=== PATIENT | male | born 2005 | race Caucasian/White ===

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

== ENCOUNTER 2024-01-11 19:46 | Emergency (ER) | payer OTHER, SELFPAY ==
--- NOTE | ~2024-01-11 | XR_ITS ---
XR chest 2V Ordering provider: Jovany Real MD History: 18 years Male with . chest pain . Comparison: None. FINDINGS: MEDIASTINUM: The cardiac silhouette is not enlarged. LUNGS: No infiltrates, effusions or pneumothorax. OTHER: No free air under the diaphragm. IMPRESSION: No acute cardiopulmonary pathology. Reviewed, dictated and finalized at location A.
--- NOTE | 2024-01-11 19:46 | ECG_ITS ---
Test Date: 2024-01-11 19:52:11 Measurements Intervals [place] Rate: 104 P: 78 IA: 150 QRS: 72 QRSD: 94 T: 55 QT: 312 QTc: 412 Interpretive Statements SINUS TACHYCARDIA NONSPECIFIC ST-T WAVE ABNORMALITY- INFERIOR LEADS BASELINE ARTIFACT- I, II, III, AVR, AVL, AVF, V1-V6 BORDERLINE ECG No previous ECG available for comparison Electronically Signed On 01-11-2024 20:03:44 CDT by Tashi Solano D.O.
[2024-01-11 19:47] VITALS: BP 140/84; PULSE 103; RESP 22; TEMP 36.7; O2SAT 100
[2024-01-11 20:06] LABS: Basophils Absolute Auto 0.1 K/mm3 (0.0-0.1); Basophils Percent Auto 0.4 % (0.2-1.2); Eosinophils Percent Auto 0.2 % (0-4.4); Hemoglobin 16.1 g/dL (14.0-18.0); Immature Granulocyte Absolute 0.15 K/mm3 (0.00-0.031); Immature Granulocyte Percent A 1.2 % (0-0.5); Lymphocytes Absolute Auto 2.13 K/mm3 (0.9-3.2); Lymphocytes Percent Auto 17.2 % (18.3-44.2); Mean Corpuscular Hemoglobin 29.8 pg (26-34); Mean Corpuscular Volume 85.2 fl (80-100); Mean Platelet Volume 9.9 fl (7.4-10.4); Monocytes Absolute Auto 0.5 K/mm3 (0.1-0.6); Monocytes Percent Auto 4.2 % (2.6-8.5); Neutrophils Absolute Auto 9.5 K/mm3 (1.3-6.7); Neutrophils Percent Auto 76.8 % (45.5-73.1); Platelet Count Result 232 k/mm3 (150-375); Red Cell Distribution Width 12.2 % (11.5-14.5); White Blood Count 12.4 K/mm3 (4.5-10.0)
[2024-01-11 20:18] LABS: Alanine Aminotransferase 31 U/L (6-50); Albumin Level 5.1 g/dL (3.5-5.1); Alkaline Phosphatase 115 U/L (38-126); Anion Gap 12 mmol/L (4-12); Aspartate Amino Transferase 30 U/L (17-59); Bilirubin,Total 0.6 mg/dL (0.2-1.3); Blood Urea Nitrogen 7 mg/dL (9-20); Carbon Dioxide 26 mmol/L (22-30); Chloride 103 mmol/L (98-107); Estimated CRCL calculation 145 ml/min; Estimated Glomerular Filt Rate > 60; Glucose 135 mg/dL (65-110); Lipase 45 U/L (23-300); Potassium 3.4 mmol/L (3.4-5.0); Sodium 141 mmol/L (137-145)
[2024-01-11 20:20] LABS: INR 0.9; Prothrombin Time 12.7 Seconds (11.1-14.7)
[2024-01-11 20:21] LABS: Partial Thromboplastin Time 26.7 Seconds (22.3-36.8)
[2024-01-11 20:29] LABS: Troponin I < 0.012 ng/mL (0.000-0.034)
[2024-01-11 20:35] VITALS: O2SAT 100
[2024-01-11 20:38] VITALS: BP 130/66; PULSE 99; RESP 13; O2SAT 100
[2024-01-11 20:56] LABS: Magnesium 1.9 mg/dL (1.6-2.3)
--- NOTE | 2024-01-11 21:04 | ED.CHESTPAIN ---
HPI - Chest Pain General Chief Complaint: Chest Pain Stated Complaint: chest pain, numbness in hands Time Seen by Provider: 01/11/24 21:00 History of Present Illness HPI narrative: Patient is a 18-year-old male who this evening complaining of chest pain and numbness to his bilateral which started approximately 1 hour prior to arrival. Patient denies any similar symptoms in the past. Admits that the pain has improved since he has been in the emergency department. Denies any cardiac history and denies any similar symptoms in the. Currently denying any sharp stabbing chest pain. No additional symptoms or concerns at this time. Related Data Allergies Allergy/AdvReac Type Severity Reaction Status Date / Time No Known Allergies Allergy Verified 01/08/21 20:18 Review of Systems Review of Systems: All systems are reviewed and are negative unless stated otherwise in the HPI. [facility] Past Medical History Medical History No active medical problems Social History Social History Smoking status: Never smoker Gender identity (if verbalized by the patient): Male Exam Narrative: General: Alert, awake, afebrile, in no acute distress. HEENT: PERRL, no rhinorrhea, no post nasal drip, oropharynx clear.. Cardiovascular: Regular rate and rhythm, no murmurs, rubs or gallops, no peripheral edema. Respiratory: Clear to auscultation bilaterally, no tachypnea, no wheezing, no rhonchi, no rubs, no respiratory distress. Abdomen: Soft, nontender, nondistended, no rebound, no guarding, no peritoneal signs. Musculoskeletal: No joint swelling or deformity, normal muscle tone. Skin: No rashes or petechia, no signs of infection. Neurological: Alert and oriented to person, place, and time. Follows all commands. No focal deficits, speech is clear and fluent. Course Vital Signs Vital signs: Vital Signs Temperature 98.1 F 01/11/24 19:47 Pulse Rate 103 H 01/11/24 19:47 Respiratory Rate 22 H 01/11/24 19:47 Blood Pressure 140/84 01/11/24 19:47 Pulse Oximetry 100 01/11/24 19:47 Oxygen Delivery Room Air 01/11/24 19:47 Temperature 98.1 F 01/11/24 19:47 Pulse Rate 99 01/11/24 20:38 Respiratory Rate 13 01/11/24 20:38 Blood Pressure 130/66 01/11/24 20:38 Pulse Oximetry 100 01/11/24 20:38 Oxygen Delivery Room Air 01/11/24 20:35 MDM - Chest Pain MDM Narrative Medical decision making narrative: The patient was evaluated by myself in the emergency department. History is obtained from patient who is an independent historian and physical exam was performed. External medical records were reviewed at this time. IV was established and pertinent tests were ordered. EKG was obtained which revealed sinus tachycardia at a rate of 104. No ST changes, T wave inversions or evidence of acute ischemia. EKG was independently interpreted by me and is currently pending official cardiology read. Laboratory results obtained revealing no acute process. Imaging studies obtained included CXR which was independently interpreted by me revealing no acute process, which is pending final radiology interpretation. Differential diagnosis considerations include acute anxiety, acute stress reaction, dehydration and acute viral syndrome. Comorbidities impacting this visit include none. I have evaluated and discussed social determinants of health with the patient that could potentially impact subsequent diagnosis and treatment plans. On repeat assessment of the patient, reevaluation revealed that the patient is doing well and is in no acute distress. Patient symptoms have improved since he arrived to our emergency department. Repeat vital signs were all reviewed and noted to be stable. Differential diagnosis and treatment plan were discussed with the patient at bedside. Patient agrees with discussion and after rose
[2024-01-11 21:45] VITALS: BP 120/77; PULSE 74; RESP 20; O2SAT 99
== END 2024-01-11 21:53 | disposition home or self-care (01) ==
LOC: ANHED 21:48
PROVIDERS: Emergency Provider Emergency Medicine
DX: R07.9 Chest pain, unspecified (principal)
CPT/HCPCS: 36415; 71046; 80053; 83690; 83735; 84484; 85025; 85610; 85730; 93005; 99284

== ENCOUNTER 2024-05-06 01:15 | Emergency (ER) | payer OTHER, SELFPAY ==
--- NOTE | ~2024-05-06 | XR_ITS ---
EXAMINATION: XR chest 1V portable DATE: 05/06/2024 01:58 INDICATION: Vomiting. TECHNIQUE: A single frontal view of the chest was obtained. COMPARISON: Chest 2 views 01/11/2024 FINDINGS: There is no pneumonia, pleural effusion, or pneumothorax. The heart size is normal. IMPRESSION: 1. No acute cardiopulmonary disease. Reviewed, dictated and finalized at location A.
[2024-05-06 01:22] VITALS: BP 119/81; PULSE 79; RESP 15; TEMP 36.4; O2SAT 98
--- NOTE | 2024-05-06 01:37 | PC.NURSE ---
Patient politely refused a straight catheter for his urine specimen.
[2024-05-06 01:43] LABS: Basophils Absolute Auto 0.1 K/mm3 (0.0-0.1); Basophils Percent Auto 0.5 % (0.2-1.2); Eosinophils Absolute Auto 0.1 K/mm3 (0-0.3); Eosinophils Percent Auto 0.5 % (0-4.4); Hematocrit 43.9 % (42.0-52.0); Immature Granulocyte Absolute 0.16 K/mm3 (0.00-0.031); Immature Granulocyte Percent A 1.5 % (0-0.5); Lymphocytes Absolute Auto 2.91 K/mm3 (0.9-3.2); Lymphocytes Percent Auto 26.8 % (18.3-44.2); Mean Corpuscular HGB Conc 36.4 g/dl (32-36); Mean Corpuscular Hemoglobin 30.9 pg (26-34); Mean Corpuscular Volume 84.9 fl (80-100); Monocytes Absolute Auto 0.7 K/mm3 (0.1-0.6); Monocytes Percent Auto 6.1 % (2.6-8.5); Neutrophils Percent Auto 64.6 % (45.5-73.1); Platelet Count Result 221 k/mm3 (150-375); Red Blood Count 5.17 M/mm3 (4.6-6.20); Red Cell Distribution Width 12.3 % (11.5-14.5); White Blood Count 10.9 K/mm3 (4.5-10.0)
[2024-05-06 01:56] LABS: Alanine Aminotransferase 40 U/L (6-50); Albumin Level 5.2 g/dL (3.5-5.1); Alkaline Phosphatase 110 U/L (38-126); Anion Gap 15 mmol/L (4-12); Aspartate Amino Transferase 35 U/L (17-59); Bilirubin,Total 0.7 mg/dL (0.2-1.3); Blood Urea Nitrogen 11 mg/dL (9-20); Calcium 9.3 mg/dL (8.4-10.2); Carbon Dioxide 22 mmol/L (22-30); Chloride 105 mmol/L (98-107); Estimated CRCL calculation 131 ml/min; Estimated Glomerular Filt Rate > 60; Ethanol 111 mg/dL (<10); Glucose 133 mg/dL (65-110); Lipase 49 U/L (23-300); Potassium 3.2 mmol/L (3.4-5.0); Sodium 142 mmol/L (137-145)
[2024-05-06] MEDS: FAMOTIDINE 20 MG/2 ML VIAL IV PUSH (01:58)
[2024-05-06] MEDS: METOCLOPRAMIDE HCL INJ 10 MG/2 ML VIAL IV PUSH (01:58)
[2024-05-06] MEDS: MAG HYDROX/AL HYDROX/SIMETH 30 ML UDC PO (01:58)
[2024-05-06] MEDS: LACTATED RINGERS 1,000 ML 999 ML IV CONT (01:58)
--- NOTE | 2024-05-06 02:15 | ED_ITS ---
HPI - Nausea/Vomiting/Diarrhea General Chief complaint: Nausea/Vomiting/Diarrhea Stated complaint: vomitting blood after drinking etoh Time Seen by Provider: 05/06/24 01:44 History of Present Illness HPI Narrative: 19-year-old otherwise healthy male presenting to the emergency depart with nausea vomiting after ABX safe mL alcohol throughout the day. His fiancee is present at bedside. Patient is awake alert oriented and appears clinically sober enough to talk to me. He states that he was vomiting several times prior to arrival and had some red flecks in his vomit that made him concerned he was vomiting blood. He admitting drinking significant amounts of fireball over last 3 hours. He is awake and denies any active chest pain, nausea presently, abdominal pain or back pain. His fiancee is present at bedside for additional collateral formation. He was previously in his normal state of health. No history of esophageal problems, previous surgeries or endoscopies. No sign ificant alcohol use. Related Data Allergies Allergy/AdvReac Type Severity Reaction Status Date / Time No Known Allergies Allergy Verified 05/06/24 01:15 Review of Systems Review of Systems: As reviewed above in HPI [facility] Past Medical History Medical History No active medical problems Social History Social History Smoking status: Never smoker Gender identity (if verbalized by the patient): Male Exam Narrative: GENERAL: [Well-appearing, well-nourished, and in no acute distress.] HEAD: [Normocephalic, atraumatic.] EYES: [PERRLA and EOMI.] ENT: Nares clear, no rhinorrhea or epistaxis. Mucous membranes moist. NECK: Supple. CHEST: [Clear to auscultation. No respiratory distress.] HEART: [Regular rate and rhythm]. No murmur heard. [Normal peripheral pulses.] ABDOMEN: [Soft, nondistended], [nontender], [No rigidity or guarding] EXTREMITIES: Normal range of motion. [No edema.] SKIN: Warm, dry, no rash. NEURO: [No focal deficits]. Alert and oriented [x3.] PSYCH: [Normal mood and affect.] Course Vital Signs Vital signs: Vital Signs Temperature 36.4 C L 05/06/24 01:22 Pulse Rate 79 05/06/24 01:22 Respiratory Rate 15 05/06/24 01:22 Blood Pressure 119/81 05/06/24 01:22 Pulse Oximetry 98 05/06/24 01:22 Oxygen Delivery Room Air 05/06/24 01:22 Temperature 36.4 C L 05/06/24 01:22 Pulse Rate 79 05/06/24 01:22 Respiratory Rate 15 05/06/24 01:22 Blood Pressure 119/81 05/06/24 01:22 Pulse Oximetry 98 05/06/24 01:22 Oxygen Delivery Room Air 05/06/24 01:22 MDM - Nausea/Vomiting/Diarrhea MDM Narrative Medical decision making narrative: 19-year-old male who had significant amounts of alcohol throughout the day today and had 3 rounds of vomiting with 1 episode of blood flecks with his vomit. He was hemodynamically stable, not in acute distress, awake alert oriented. No crepitus with palpation of the chest or back. No present nausea or vomiting. Hemodynamically stable. Blood work was obtained including alcohol level and bili laboratory studies with a CBC, CMP, lipase. He was given a dose of Pepcid, Maalox, Reglan and a fluid bolus. Workup revealed a white count of 10.9 likely reactive to the vomiting. Hemoglobin of 16.0 and stable. Normal platelets. Electrolytes are largely within normal limits with a minor hypokalemia 3.2 but not significantly lower than previous. No acidosis. Normal renal function panel. Normal hepatic function panel. Negative lipase. Alcohol level mildly elevated 111. Chest x- ray reviewed and interpreted by myself shows no pneumonia, consolidation or aspiration. Patient was re-evaluated and stable for discharge home at this time with family members that will be driving him home. He was given regular primary care provider follow-up in a prescription for Zofran. Medical Records Attestation: I reviewed the patient's medical records. Lab Data Attestation: I reviewed the patient's lab results. 05/06/24 01:31 05/06/24 01:31 Labs: Lab Results 05/06/24 Range/Units 01:31 WBC 10.9 H (4.5-10.0) K/mm3 RBC 5.17 (4.6-6.20) M/mm3 Hgb 16.0 (14.0-18.0) g/dL Hct 43.9 (42.0-52.0) % MCV 84.9 (80-100) fl MCH 30.9 (26-34) pg MCHC 36.4 H (32-36) g/dl RDW 12.3 (11.5-14.5) % Plt Count 221 (150-375) k/mm3 MPV 10.0 (7.4-10.4) fl Immature Gran % (Auto) 1.5 H (0-0.5) % Neut % (Auto) 64.6 (45.5-73.1) % Lymph % (Auto) 26.8 (18.3-44.2) % [place] % (Auto) 6.1 (2.6-8.5) % Eos % (Auto) 0.5 (0-4.4) % Baso % (Auto) 0.5 (0.2-1.2) % Lymph # (Auto) 2.91 (0.9-3.2) K/mm3 [place] # (Auto) 0.7 H (0.1-0.6) K/mm3 Eos # (Auto) 0.1 (0-0.3) K/mm3 Baso # (Auto) 0.1 (0.0-0.1) K/mm3 Abs Immat Gran (auto) 0.16 H (0.00-0.031) K/mm3 Absolute Neuts (auto) 7.0 H (1.3-6.7) K/mm3 Absolute Nucleated RBC 0.000 (0.0-0.012) K/mm3 Nucleated RBC % 0.0 (0.0-0.2) % Sodium 142 (137-145) mmol/L Potassium 3.2 L (3.4-5.0) mmol/L Chloride 105 (98-107) mmol/L Carbon Dioxide 22 (22-30) mmol/L Anion Gap 15 H (4-12) mmol/L BUN 11 (9-20) mg/dL Creatinine 0.80 (0.7-1.3) mg/dL Estim Creat Clear Calc 131 ml/min Estimated GFR > 60 (59 - ) Glucose 133 H (65-110) mg/dL Calcium 9.3 (8.4-10.2) mg/dL Total Bilirubin 0.7 (0.2-1.3) mg/dL AST 35 (17-59) U/L ALT 40 (6-50) U/L Alkaline Phosphatase 110 (38-126) U/L Total Protein 9.0 H (6.3-8.2) g/dL Albumin 5.2 H (3.5-5.1) g/dL Lipase 49 (23-300) U/L Ethyl Alcohol 111 (<10) mg/dL Imaging Data Attestation: I personally reviewed and interpreted this imaging study as follows: My impression: No aspiration, consolidations, pneumothorax or pneumonia Discharge Plan Discharge Clinical Impression: Nausea & vomiting, Janice-Triplett tear Patient Disposition: Home, Self-Care Condition: Stable Instructions: Antibiotic Form, Acute Nausea and Vomiting (ED), Janice-Triplett Syndrome (ED) Additional Instructions: Follow-up with your regular primary doctor outpatient. Your labs and imaging all are reassuring. We have sent home with medications for continued nausea control at home. Refrain from significant alcohol intake in the future. Prescriptions: New famotidine [Pepcid] 20 mg tablet 20 mg PO BID Qty: 20 0RF ondansetron 4 mg tablet,disintegrating 4 mg PO Q8H PRN (Reason: nausea and vomiting) Qty: 10 0RF No Action prednisone 10 mg tablets,dose pack See Rx Instructions .ROUTE .COMPLEX Qty: 48 0RF Rx Instructions: orally per package directions amoxicillin-pot clavulanate [Augmentin] 875-125 mg tablet 1 tablet PO Q12H Qty: 20 0RF methylprednisolone [Medrol (Giuliano)] 4 mg tablets,dose pack See Rx Instructions .ROUTE .COMPLEX Qty: 21 0RF Rx Instructions: orally per package directions Follow-up/Referrals: PHYSICIAN,CUT OFF SAW TENDER METAL [Primary Care Provider] - Time of Disposition: 02:34
== END 2024-05-06 03:04 | disposition home or self-care (01) ==
PROVIDERS: Emergency Provider Student in an Organized Health Care Education/Training Program
DX: R11.2 Nausea with vomiting, unspecified (principal); K22.6 Gastro-esophageal laceration-hemorrhage syndrome
CPT/HCPCS: 36415; 71045; 80053; 82077; 83690; 85025; 96361; 96374; 96375; 99284; A9270; J2765; J7120

== ENCOUNTER 2024-10-22 19:52 | Emergency (ER) | payer OTHER, SELFPAY ==
--- NOTE | ~2024-10-22 | XR_ITS ---
XR foot LT min 3V Ordering provider: Cha Ozuna MD History: . injury PAIN SWELLING . Comparison: None. FINDINGS: BONES: No acute fracture or dislocation. JOINT SPACES: Normal. No tarsal coalition. SOFT TISSUES: Normal. IMPRESSION: No acute osseous abnormality left foot. Reviewed, dictated and finalized at location A.
--- OUTSIDE RECORDS SUMMARY | 2024-10-22 19:54 | XMS_ITS | Clinical Summary ---
Author Organization [facility] Address [address] [place] [address] Care Team Providers Care Radio Electronics Technician Name Role Phone Unavailable Primary Care Provider Unavailabl e Source Comments [facility],non-owned Affiliates and Associated Physician Practices is amultiple site organization consisting of ambulatory clinics and hospital sitesin [place], [place], [place] and [place]. This disclosure is being madepursuant to the Care Everywhere program and may not contain all information available regarding this patient. Last updated 18.[facility] Allergies No known active allergies Medications * Be aware that medications may not be up to date on this document. Alwaysverify current medications with the patient. No known medications Active Problems Problem Noted Date Diagnosed Date BMI (body mass index), pediatric, 95-99% for age 0309/08/2020 Resolved Problems Problem Noted Date Diagnosed Date Resolved Date Current mild episode of ana paula r depressive disorder without prior episode 02/17/2018 Immunizations Immunization Administration Dates Next Due DTAP HIB IPV 07/29/2004, 4,2003,04/03 DTAP/IPV 11/06/2008 HEP A PEDS 2 DOSE 03/09/2007,03/16/2006 HEP B VACCINE, PED/ADOL 2003,2003, Human Papilloma Virus Nineva lent Vaccine 11/19/2016 Human Papilloma Virus Vaccine 04/25/2015 INFLUENZA VACCINE 04/25/2015,05/07/2014,04/20/20 11 INFLUENZA VACCINE, QUADR. (F LUZONE; FLULAVAL; FLUARIX; AFLURIA QUADRIVALENT; 6MO+), 0.5 ML (IIV4) 09/08/2020,07/24/2018,05/31/2017,04/25,05/07/2014 MENINGOCOCAL MENINGITIS 04/25/2015 MENINGOCOCCAL ACWY (MCV4P) VAC IM 03/15/2019 MMR 05/12/2007,04/28/2004 PNEUMOCOCCAL PCV7 CONJ, PEDS 04/28/2004, 2003,2003,04/03 TDAP (7yrs+) 04/25/2015 VARICELLA 05/12/2007,02/12/2004 Family History Medical History Relation Name Comments Depression Maternal Aunt 1 Depression Maternal Aunt 2 CAD (Coronary Artery Disease) Maternal Grandfather Depression Maternal Uncle Relation Name Status Comments Maternal Aunt 1 Maternal Aunt 2 Maternal Grandfather Maternal Uncle Social History Tobacco Use Types Packs/Day Years Used Date Smoking Tobacco: Never Assessed Sex and Gender Information Value Date Recorded Sex Assigned at Not on file Legal Sex Male 7:52 AM SOFTWARE DEVELOPER Gender Identity Not on file Sexual Orientation Not on file Last Filed Vital Signs Vital Sign Reading Time Taken Comments Blood Pressure 127/76 09/08/2020 2:48 PM SOFTWARE DEVELOPER Pulse 62 09/08/2020 2:48 PM SOFTWARE DEVELOPER Temperature 36.5 C (97.7 F) 09/08/2020 2:48 PM SOFTWARE DEVELOPER Respiratory Rate - - Oxygen Saturation - - Inhaled Oxygen Concentration - - Weight 90.4 kg (199 lb 6.4 oz) 09/08/2020 2:48 P M SOFTWARE DEVELOPER Height 174 cm (5' 8.5 ) 09/08/2020 2:48 PM SOFTWARE DEVELOPER Body Mass Index 29.88 09/08/2020 2:48 PM SOFTWARE DEVELOPER Plan of Treatment Health Maintenance Due Date Last Done Comments HIV SCREENING 2018 MENINGOCOCCAL (Group B) VACC INE SHARED DECISION-MAKING (1 of 2 - Standard) 2019 HEPATITIS C SCREENING 02/01/2021 COVID-19 VACCINE (2023-2 5 season) 2024 DEPRESSION SCREENING 07/11/2024 INFLUENZA VACCINE (Season Ended) 2025 09/08/2020, 07/24/2018, 05/31/2017, Additional history exists DTAP/TDAP/TD VACCINES (7 - T d or Tdap) 04/25/2025 04/25/2015, 11/06/2008, 07/29/2004, Additional history exists ZOSTER VACCINE (1 of 2) 2053 HEPATITIS B VACCINE Completed 2003, 2003, 2003 PNEUMOCOCCAL VACCINE Completed 04/28/2004, 2003, 2003, Additional history exists HIB VACCINE Completed 07/29/2004, 08/11, 2003, Additional history exists HPV VACCINE Completed 11/19/2016, 04/25/2015 MENINGOCOCCAL GROUPS A/C/Y/W VACCINE Completed 03/15/2019, 04/25/2015 Goals Goal Patient Goal Type Associated Problems Recent Progress Patient-Stated? Author Use safety retraint in car Lifestyle On track( 021 2:48 PM SOFTWARE DEVELOPER) No Iman Montanez RN Insurance [place] [address]
[2024-10-22 20:20] VITALS: BP 141/72; PULSE 95; RESP 14; TEMP 36.7; O2SAT 100
--- NOTE | 2024-10-22 22:08 | ED.LOWEXIN ---
HPI - Extremity Injury (Lower) General Chief Complaint: Extremity Injury, Lower Stated Complaint: L foot injury Time Seen by Provider: 10/22/24 22:06 Source: patient Mode of arrival: ambulatory Limitations: no limitations History of Present Illness HPI Narrative: This is a 19-year-old male who presents to the ED for chief complaint of left foot injury that occurred around 4:00 p.m. today while at work. Patient states that was moving moving shingles when he jumped off the truck bed. States that his left foot landed hole and twisted. He does feel like he heard a crack. States that weight-bearing is very difficult due to pain. Patient reports pain is primarily across the plantar surface of the midfoot. Denies ankle pain or further injury Related Data Allergies Allergy/AdvReac Type Severity Reaction Status Date / Time No Known Allergies Allergy Verified 10/22/24 19:53 Review of Systems Review of Systems: All systems as dictated in HPI [facility] Past Medical History Medical History No active medical problems Social History Social History Smoking status: Never smoker Gender identity (if verbalized by the patient): Male Exam Narrative: GENERAL: Well-appearing, well-nourished, and in no acute distress. MSK: LLE: Mild swelling throughout the left foot. Mild tenderness to the plantar surface of mid foot. No tenderness to the base of the 5th metatarsal. No ankle swelling or tenderness. RLE: Benign SKIN: Warm, dry, no rash. NEURO: Alert and oriented x4. No focal deficits. PSYCH: Normal mood and affect. Course Vital Signs Vital signs: Vital Signs Temperature 98.1 F 10/22/24 20:20 Pulse Rate 95 10/22/24 20:20 Respiratory Rate 14 10/22/24 20:20 Blood Pressure 141/72 H 10/22/24 20:20 Pulse Oximetry 100 10/22/24 20:20 Oxygen Delivery Room Air 10/22/24 20:20 Temperature 98.1 F 10/22/24 20:20 Pulse Rate 95 10/22/24 20:20 Respiratory Rate 14 10/22/24 20:20 Blood Pressure 141/72 H 10/22/24 20:20 Pulse Oximetry 100 10/22/24 20:20 Oxygen Delivery Room Air 10/22/24 20:20 MDM - Extremity Injury (Lower) MDM Narrative Medical decision making narrative: 19-year-old male presenting to the ED for chief complaint of left foot injury a work today. Vitals are normal. Exam remarkable for the above. X-rays are negative for acute osseous findings. Presentation consistent with likely left foot sprain. He was placed in short-leg posterior splint and given crutches for assistance with ambulation. Podiatry referral given. If you have any new or worsening symptoms please return to the ER for further evaluation. Discharge Plan Discharge Clinical Impression: Foot sprain Patient Disposition: Home Condition: Stable Instructions: Antibiotic Form, Foot Sprain (ED) Additional Instructions: Exam and imaging today showed no fracture or dislocation. Please follow-up with Podiatry for likely left foot sprain. Use splint until otherwise directed. Continue with Tylenol and ibuprofen every 6 hours as needed for pain control. Patient Language: French Prescriptions: No Action prednisone 10 mg tablets,dose pack See Rx Instructions .ROUTE .COMPLEX Qty: 48 0RF Rx Instructions: orally per package directions amoxicillin-pot clavulanate [Augmentin] 875-125 mg tablet 1 tablet PO Q12H Qty: 20 0RF methylprednisolone [Medrol (Giuliano)] 4 mg tablets,dose pack See Rx Instructions .ROUTE .COMPLEX Qty: 21 0RF Rx Instructions: orally per package directions famotidine [Pepcid] 20 mg tablet 20 mg PO BID Qty: 20 0RF ondansetron 4 mg tablet,disintegrating 4 mg PO Q8H PRN (Reason: nausea and vomiting) Qty: 10 0RF Follow-up/Referrals: Maria Alejandra Yepez DPM [Physician] - PHYSICIAN,SENIOR ECOLOGIST [Primary Care Provider] - Andrew Servin MD [Physician] - Stand Alone Forms: Work/School Release IP Time of Disposition: 22:15
--- OUTSIDE RECORDS SUMMARY | 2024-10-22 22:33 | XMS_ITS | Clinical Summary ---
Author Organization [facility] Address [address] [place] [address] Care Team Providers Care Maintenance Coordinator Name Role Phone Unavailable Primary Care Provider Unavailabl e Source Comments [facility],non-owned Affiliates and Associated Physician Practices is amultiple site organization consisting of ambulatory clinics and hospital sitesin [place], [place], [place] and [place]. This disclosure is being madepursuant to the Care Everywhere program and may not contain all information available regarding this patient. Last updated 18.[facility] Allergies No known active allergies Medications * [...] on file Legal Sex Male 7:52 AM HISTORIAN DRAMATIC ARTS Gender Identity Not on file Sexual Orientation Not on file Last Filed Vital Signs Vital Sign Reading Time Taken Comments Blood Pressure 127/76 09/08/2020 2:48 PM HISTORIAN DRAMATIC ARTS Pulse 62 09/08/2020 2:48 PM HISTORIAN DRAMATIC ARTS Temperature 36.5 C (97.7 F) 09/08/2020 2:48 PM HISTORIAN DRAMATIC ARTS Respiratory Rate - - Oxygen Saturation - - Inhaled Oxygen Concentration - - Weight 90.4 kg (199 lb 6.4 oz) 09/08/2020 2:48 P M HISTORIAN DRAMATIC ARTS Height 174 cm (5' 8.5 ) 09/08/2020 2:48 PM HISTORIAN DRAMATIC ARTS Body Mass Index 29.88 09/08/2020 2:48 PM HISTORIAN DRAMATIC ARTS Plan of Treatment Health Maintenance Due Date [...] car Lifestyle On track( 021 2:48 PM HISTORIAN DRAMATIC ARTS) No Iman Montanez RN [place] [address] [address] [place] [address]
[2024-10-22] MEDS: HYDROcodone/acetaminophen (*CRX) 5-325 MG TABLET 1 TAB PO (22:40)
== END 2024-10-22 23:12 | disposition home or self-care (01) ==
LOC: ANHED 22:31
PROVIDERS: Emergency Provider Physician Assistant
DX: S93.602A Unspecified sprain of left foot, initial encounter (principal); X50.9XXA Other and unspecified overexertion or strenuous movements or postures, initial encounter
CPT/HCPCS: 73630; 99283; A9270

== ENCOUNTER 2024-11-05 22:36 | Emergency (ER) | payer OTHER, SELFPAY ==
[2024-11-05 22:38] VITALS: BP 143/79; PULSE 107; RESP 18; TEMP 36.6; O2SAT 100
--- OUTSIDE RECORDS SUMMARY | 2024-11-05 22:38 | XMS_ITS | Clinical Summary ---
Author Organization [facility] Address [address] [place] [address] Care Team Providers Care Pier Hand Helper Name Role Phone Unavailable Primary Care Provider Unavailabl e Source Comments [facility],non-owned Affiliates and Associated Physician Practices is amultiple site organization consisting of ambulatory clinics and hospital sitesin [place], [place], [place] and [place]. This disclosure is being madepursuant to the Care Everywhere program and may not contain all information available regarding this patient. Last updated 18.[facility] Allergies No known active allergies Medications * [...] on file Legal Sex Male 7:52 AM FERRIS WHEEL OPERATOR Gender Identity Not on file Sexual Orientation Not on file Last Filed Vital Signs Vital Sign Reading Time Taken Comments Blood Pressure 127/76 09/08/2020 2:48 PM FERRIS WHEEL OPERATOR Pulse 62 09/08/2020 2:48 PM FERRIS WHEEL OPERATOR Temperature 36.5 C (97.7 F) 09/08/2020 2:48 PM FERRIS WHEEL OPERATOR Respiratory Rate - - Oxygen Saturation - - Inhaled Oxygen Concentration - - Weight 90.4 kg (199 lb 6.4 oz) 09/08/2020 2:48 P M FERRIS WHEEL OPERATOR Height 174 cm (5' 8.5 ) 09/08/2020 2:48 PM FERRIS WHEEL OPERATOR Body Mass Index 29.88 09/08/2020 2:48 PM FERRIS WHEEL OPERATOR Plan of Treatment Health Maintenance Due Date [...] car Lifestyle On track( 021 2:48 PM FERRIS WHEEL OPERATOR) No Iman Montanez [place] [address] [place] [address]
--- NOTE | 2024-11-06 00:20 | PC.NURSE ---
Mother to desk stating they are going to leave.
--- OUTSIDE RECORDS SUMMARY | 2024-11-06 01:57 | XMS_ITS | Clinical Summary ---
Author Organization [facility] Address [address] [place] [address] Care Team Providers Care Financial Analyst Name Role Phone Unavailable Primary Care Provider Unavailabl e Source Comments [facility],non-owned Affiliates and Associated Physician Practices is amultiple site organization consisting of ambulatory clinics and hospital sitesin [place], [place], [place] and [place]. This disclosure is being madepursuant to the Care Everywhere program and may not contain all information available regarding this patient. 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 Gender Identity Not on file Sexual Orientation Not on file Last Filed Vital Signs Vital Sign Reading Time Taken Comments Blood Pressure 127/76 09/08/2020 2:48 PM HOTEL ROOM ATTENDANT Pulse 62 09/08/2020 2:48 PM HOTEL ROOM ATTENDANT Temperature 36.5 C (97.7 F) 09/08/2020 2:48 PM HOTEL ROOM ATTENDANT Respiratory Rate - - Oxygen Saturation - - Inhaled Oxygen Concentration - - Weight 90.4 kg (199 lb 6.4 oz) 09/08/2020 2:48 P M HOTEL ROOM ATTENDANT Height 174 cm (5' 8.5 ) 09/08/2020 2:48 PM HOTEL ROOM ATTENDANT Body Mass Index 29.88 09/08/2020 2:48 PM HOTEL ROOM ATTENDANT Plan of Treatment Health Maintenance Due Date [...] car Lifestyle On track( 021 2:48 PM HOTEL ROOM ATTENDANT) No Iman Montanez RN [place] [place] [address]
--- OUTSIDE RECORDS SUMMARY | 2024-11-06 01:59 | XMS_ITS | Encounter Summary ---
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 11/06/2024 1:15 AM CDT [facility] ABS. IMMATURE GRANULOCYTES 0.11 0.00 - 0.49 x10'3/uL 11/06/2024 1:15 AM CDT [facility] 11/06/2024 12:3 7 AM CDT [facility] Final Result [facility] [address] [place] [address], documented in this encounter Visit Diagnoses Not on filedocumented in this encounter Administered Medications Active Administered Medications - up to 3 most recent administrations Medication Order MAR Action Action Date Dose Rate Site supsjwgc-kyeivuznsy-zspxcjuus (NEOSPORIN) ointment Topical, Once, 1 dose, On 11/06/24 at 0200 Inactive Administered Medications - up to 3 most recent administrations Medication Order MAR Action Action Date Dose Rate Site iopamidol (ISOVUE-370) 76 % injection 100 mL 100 mL, Intravenous, IMG once as needed, Contrast, 1 dose, Starting on 11/06/24 at 0148, Until 11/06/24 at 0148 Given 11/06/2024 1:48 AM CDT 100 mLs ketorolac (TORADOL) injection 15 mg 15 mg, Intravenous, Once, 1 dose, On 11/06/24 at 0045, For IV administration, give over 15 seconds. Given 11/06/2024 12:49 AM CDT 15 mg documented in this encounter Active and Recently Administered Medications Times are shown in CDT. Scheduled Medication Order 11/04/2024 11/05/2024 11/06/2024 ketorolac (TORADOL) injection 15 mg (COMPLETED) 15 mg, Intravenous, Once, 1 dose, On 11/06/24 at 0045, For IV administration, give over 15 seconds. 0049 (Given - Provid er: Tony Smith RN) znszhmew-tulenplrnf-hsitppjeg (NEOSPORIN) ointment Topical, Once, 1 dose, On e 11/06/24 at 0200 0200 (Due) PRN Medication Order 11/04/2024 11/05/2024 11/06/2024 iopamidol (ISOVUE-370) 76 % injection 100 mL (COMPLETED) 100 mL, Intravenous, IMG once as needed, Contrast, 1 dose, Starting on Tue11/06/24 at 0148, Until Tue11/06/24 at 0148 0148 (Given - Provid er: Edith Wetzel, RTR) documented in this encounter Care Teams Small Battery Plate Assembler Relationship Specialty Start Date End Date None, Provider, MD PCP - General UNKNOWN PHYSICIAN SPECIALTY 11/06/24 documented as of this encounter
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
--- OUTSIDE RECORDS SUMMARY | 2024-11-06 01:59 | XMS_ITS | Encounter Summary ---
Author Organization [facility] Address [address] [place] [address] Care Team Providers Care Oven Dumper Name Role Phone None, Provider Primary Care Provider Unavaila ble Encounter Details Date Type Department Care Team (Latest Contact Info) Description 11/06/2024 Travel Social History Tobacco Use Types Packs/Day Years Used Date Smoking Tobacco: Never Passive Smoke Exposure: Never Smokeless Tobacco: Never Alcohol Use Standard Drinks/Week Comments Not Currently 0 (1 standard drink = 0.6 oz pur e alcohol) sometimes Sex and Gender Information Value Date Recorded Sex Assigned at Male 11/06/2024 12:30 AM CDT Legal Sex Male 12:27 AM CDT Gender Identity Not on file Sexual Orientation Not on file documented as of this encounter Functional Status * Calculated C-SSRS Risk Score (Lifetime/Recent) Answer Date of Assessment Author Status No Risk Indicated 11/06/2024 12:37 AM CDT Brook Villa RN Active * [place] Suicide Severity Rating Scale (Screener/Recent Self-Report) Question Answer Date of Assessment Author Status 1. Wish to be (Past 1 Month) No 11/06/2024 12:37 AM CDT Lissy Villa RN Act denisse 2. Non-Specific Active Suicidal Thoughts (Past 1 Month) No 11/06/2024 12:37 AM ALIZAT Lissy Villa RN Act denisse 6. Suicidal Behavior (Lifetime) No 11/06/2024 12:37 AM ALIZAT Lissy Villa RN Act denisse documented as of this encounter Plan of Treatment Not on file documented as of this encounter Visit Diagnoses Not on filedocumented in this encounter Care Teams Oven Dumper Relationship Specialty Start Date End Date None, Provider, PCP - General UNKNOWN PHYSICIAN SPECIALTY 11/06/24 documented as of this encounter
== END 2024-11-06 00:20 | disposition left against medical advice (07) ==
DX: S71.001A Unspecified open wound, right hip, initial encounter (principal)
CPT/HCPCS: 99199

== ENCOUNTER 2025-05-21 14:08 | Emergency (ER) | payer SELFPAY ==
--- NOTE | ~2025-05-21 | CT_ITS ---
EXAM/PROCEDURE: CT abdomen pelvis w con HISTORY: Umbilical and right lower quadrant pain COMPARISON: None available. TECHNIQUE: IV contrast enhanced CT of the abdomen and pelvis FINDINGS: The appendix is inferior and medial to the cecum and appears normal. Several loops of fluid-filled small and large bowel are present. The bowel gas pattern is nonobstructive with no free air free fluid or pneumatosis seen. No hydroureteronephrosis or AAA. Gallbladder appears within normal limits. Adrenal glands spleen pancreas kidneys and stomach are unremarkable. Lung bases clear. Bones intact. No bulky lymphadenopathy or masses seen. Numerous shotty/borderline pathologic size mesenteric lymph nodes are noted. Urinary bladder is nondistended but appears grossly normal. Small area of infiltration in the lower pelvic (midline subcutaneous soft tissues image 155 series 3. No discrete lesion or drainable fluid collection. No abscess seen. Vascular structures appear patent. IMPRESSION: 1. Multiple fluid-filled loops of small and large bowel could be associated with infectious enterocolitis. Numerous mesenteric lymph nodes are noted which could also be associated with mesenteric adenitis. 2. Normal-appearing appendix. No acute surgical abnormality identified. Reviewed, dictated and finalized at location A. LOPMENT MANAGER IMPRESSION: 1. Multiple fluid-filled loops of small and large bowel could be associated wit h infectious enterocolitis. Numerous mesenteric lymph nodes are noted which cou ld also be associated with mesenteric adenitis. 2. Normal-appearing appendix. No acute surgical abnormality identified.
[2025-05-21 14:10] VITALS: BP 144/69; PULSE 73; RESP 20; TEMP 36.2; O2SAT 99
--- OUTSIDE RECORDS SUMMARY | 2025-05-21 14:14 | XMS_ITS | Clinical Summary ---
Author Organization [facility] Address [address] [place] [address] Care Team Providers Care Oceanographic Meteorologist Name Role Phone None, Provider MD Primary Care Provider Unavaila ble Allergies No known active allergies Social History Tobacco Use Types Packs/Day Years [...] Sign Reading Time Taken Comments Blood Pressure 109/55 11/06/2024 2:00 AM CDT Pulse 92 11/06/2024 12:31 AM CDT Temperature 36.3 C (97.3 F) 11/06/2024 12:31 AM CDT Respiratory Rate 18 11/06/2024 12:31 AM CDT Oxygen Saturation 99% 11/06/2024 2:30 AM CDT Inhaled Oxygen Concentration - - Weight 86.9 kg (191 lb 9.3 oz) 11/06/2024 12:31 AM CDT Height 175.3 cm (5' 9) 11/06/2024 12:31 AM CDT Body Mass Index 28.29 11/06/2024 12:31 AM CDT Plan of Treatment Health Maintenance Due Date Last Done Comments Annual Physical 2006 Meningococcal B Vaccine (1 of 2 - Standard) 2019 Hepatitis C 2021 COVID-19 Vaccine ( season) 2025 Influenza Adult (#1) 2025 09/08/2020, 07/24/2018, 05/31/2017, Additional history exists DTaP, Tdap and Td Vaccines (7 - [...] 11/19/2016, 04/25/2015 Meningococcal Vaccine Completed 03/15/2019, 015 Hepatitis A Vaccines Aged Out No long er eligible based on patient's age to complete this topic RSV Immunizations Under 20 Months Aged Out No longer eligible based on patient's age to complete this topic Insurance [employer] Care Teams Oceanographic Meteorologist Relationship Specialty Start Date End Date None, Provider, MD PCP - General UNKNOWN PHYSICIAN SPECIALTY 11/06/24
--- NOTE | 2025-05-21 15:02 | ED_ITS ---
HPI - General Adult General Chief complaint: Abdominal Pain Stated complaint: abd pain Time Seen by Provider: 05/21/25 14:47 History of Present Illness HPI narrative: 20-year-old male with no significant past medical history presenting to the emergency department for evaluation for periumbilical and right lower quadrant abdominal pain that is been worsening since Tuesday. Patient reports he does have associated diarrhea but denies any nausea or vomiting. Patient states his urine is concentrated but denies any pain with urination. Patient denies any prior history of kidney stones. Patient denies any previous surgical history. Pain is well-appearing at time of evaluation. Patient denies any illicit drug use. Patient denies medical marijuana use. Patient does admit to vaping nicotine. Related Data Allergies Allergy/AdvReac Type Severity Reaction Status Date / Time No Known Allergies Allergy Verified 05/21/25 15:30 Review of Systems 2 Review of Systems: All systems reviewed & are unremarkable except as noted in HPI and below PMFSH Past Medical History Medical History No active medical problems Social History Social History Gender identity (if verbalized by the patient): Male Exam 2 Narrative: APPEARANCE: Well appearing, no pain, no distress, well-nourished. HEAD: normocephalic, atraumatic. EYES: PERRLA/EOMI, conjunctivae clear. NOSE: Normal no drainage EARS:TMS clear with good light reflex. THROAT: Pharynx clear, no exudate. NECK: Supple. No adenopathy, no masses. RESPIRATORY: Airway patent, respirations nonlabored. Clear to auscultation bilaterally, no rales, rhonchi, wheezing. CARDIOVASCULAR: Regular rate and rhythm without murmurs rubs or gallops. ABDOMINAL: Diffuse abdominal tenderness to palpation worse in the right lower quadrant. MUSCULOSKELETAL: Moves all extremities. Strength/ROM intact, No edema, No calf tenderness. NEURO: Alert. Cranial nerves II through XII intact. Good gait. Good coordination SKIN: Warm, dry. Normal Color Course Vital Signs Vital signs: Vital Signs Temperature 97.1 F L 05/21/25 14:10 Pulse Rate 73 05/21/25 14:10 Respiratory Rate 20 05/21/25 14:10 Blood Pressure 144/69 H 05/21/25 14:10 Pulse Oximetry 99 05/21/25 14:10 Oxygen Delivery Room Air 05/21/25 14:10 Temperature 97.1 F L 05/21/25 14:10 Pulse Rate 77 05/21/25 17:15 Respiratory Rate 18 05/21/25 17:15 Blood Pressure 121/77 05/21/25 17:15 Pulse Oximetry 99 05/21/25 17:15 Oxygen Delivery Room Air 05/21/25 14:10 Medical Decision Making MDM Narrative Medical decision making narrative: 20-year-old male presenting to the emergency department for evaluation for diffuse abdominal pain worse in the right lower quadrant. Patient is currently afebrile with no leukocytosis and hemoglobin of 15.8. Patient has no acute abnormalities on his CMP with normal lipase. UA was negative for infection but he did have ketones. Patient was treated with 2 L of lactated Ringer's. CT was ordered to evaluate for appendicitis/acute cholecystitis/colitis and it did show evidence of suspected enterocolitis versus mesenteric adenitis. Patient was advised to take anti-inflammatories for pain control, follow a clear liquid diet and to use Zofran as needed for nausea control. Differential Diagnosis Differential Diagnosis: Colitis, diverticulitis, appendicitis, acute cholecystitis, enterocolitis, mesenteric adenitis Vital Signs Vital Signs: Vital Signs Temperature 97.1 F L 05/21/25 14:10 Pulse Rate 73 05/21/25 14:10 Respiratory Rate 20 05/21/25 14:10 Blood Pressure 144/69 H 05/21/25 14:10 Pulse Oximetry 99 05/21/25 14:10 Oxygen Delivery Room Air 05/21/25 14:10 Temperature 97.1 F L 05/21/25 14:10 Pulse Rate 77 05/21/25 17:15 Respiratory Rate 18 05/21/25 17:15 Blood Pressure 121/77 05/21/25 17:15 Pulse Oximetry 99 05/21/25 17:15 Oxygen Delivery Room Air 05/21/25 14:10 Lab Data Lab results reviewed: Yes I reviewed the patient's lab results. 05/21/25 15:04 05/21/25 15:04 Labs: Lab Results 05/21/25 05/21/25 Range/Units 15:04 15:22 WBC 7.1 (4.5-10.0) K/mm3 RBC 5.31 (4.6-6.20) M/mm3 Hgb 15.8 (14.0-18.0) g/dL Hct 46.0 (42.0-52.0) % MCV 86.6 (80-100) fl MCH 29.8 (26-34) pg MCHC 34.3 (32-36) g/dl RDW 12.7 (11.5-14.5) % Plt Count 172 (150-375) k/mm3 MPV 9.8 (7.4-10.4) fl Immature Gran % (Auto) 0.8 H (0-0.5) % Neut % (Auto) 64.3 (45.5-73.1) % Lymph % (Auto) 20.2 (18.3-44.2) % [place] % (Auto) 12.7 H (2.6-8.5) % Eos % (Auto) 1.6 (0-4.4) % Baso % (Auto) 0.4 (0.2-1.2) % Lymph # (Auto) 1.43 (0.9-3.2) K/mm3 Clay # (Auto) 0.9 H (0.1-0.6) K/mm3 Eos # (Auto) 0.1 (0-0.3) K/mm3 Baso # (Auto) 0.0 (0.0-0.1) K/mm3 Abs Immat Gran (auto) 0.06 H (0.00-0.031) K/mm3 Absolute Neuts (auto) 4.6 (1.3-6.7) K/mm3 Absolute Nucleated RBC 0.000 (0.0-0.012) K/mm3 Nucleated RBC % 0.0 (0.0-0.2) % Sodium 139 (137-145) mmol/L Potassium 3.6 (3.4-5.0) mmol/L Chloride 103 (98-107) mmol/L Carbon Dioxide 28 (22-30) mmol/L Anion Gap 8 (4-12) mmol/L BUN 14 (9-20) mg/dL Creatinine 0.96 (0.7-1.3) mg/dL Estim Creat Clear Calc 120 ml/min Estimated GFR > 60 (59 - ) Glucose 93 (65-110) mg/dL Calcium 8.9 (8.4-10.2) mg/dL Total Bilirubin 0.7 (0.2-1.3) mg/dL AST 30 (17-59) U/L ALT 28 (6-50) U/L Alkaline Phosphatase 107 (38-126) U/L Total Protein 7.6 (6.3-8.2) g/dL Albumin 4.5 (3.5-5.1) g/dL Lipase 55 (23-300) U/L Urine Color Yellow (Yellow) Urine Appearance Clear (Clear) Urine pH 5.5 (5.0-9.0) Ur Specific [place] 1.035 (1.001-1.035) Urine Protein Negative (Negative) mg/dL Urine Glucose (UA) Negative (Negative) mg/dL Urine Ketones Trace H (Negative) mg/dL Ur Blood (Man) Negative (Negative) Urine Nitrate Negative (Negative) Urine Bilirubin Negative (Negative) Urine Urobilinogen 1.0 (<2.0) mg/dL Leukocyte Esterase Rfl Negative (Negative) EVERARDO/UL Imaging Data Radiologist's impression: Impressions Abdomen/Pelvis CT 05/21/25 15:53 IMPRESSION: 1. Multiple fluid-filled loops of small and large bowel could be associated with infectious enterocolitis. Numerous mesenteric lymph nodes are noted which could also be associated with mesenteric adenitis. 2. Normal-appearing appendix. No acute surgical abnormality identified. Discharge Plan Discharge Clinical Impression: Acute mesenteric adenitis, Abdominal pain Patient Disposition: Home Condition: Stable Instructions: Antibiotic Form, Clear Liquid Diet (ED), Abdominal Pain (ED), Mesenteric Adenitis (ED) Additional Instructions: Clear liquid diet for the next 1-3 days. Zofran as needed for nausea control. Scheduled NSAIDs for pain control for the next 3-5 days. Have close follow-up with your primary care physician Patient Language: Gibraltarian Prescriptions: New ondansetron 4 mg tablet,disintegrating 4 mg PO Q8H PRN (Reason: nausea and vomiting) Qty: 14 0RF No Action prednisone 10 mg tablets,dose pack See Rx Instructions .ROUTE .COMPLEX Qty: 48 0RF Rx Instructions: orally per package directions amoxicillin-pot clavulanate [Augmentin] 875-125 mg tablet 1 tablet PO Q12H Qty: 20 0RF methylprednisolone [Medrol (Giuliano)] 4 mg tablets,dose pack See Rx Instructions .ROUTE .COMPLEX Qty: 21 0RF Rx Instructions: orally per package directions famotidine [Pepcid] 20 mg tablet 20 mg PO BID Qty: 20 0RF ondansetron 4 mg tablet,disintegrating 4 mg PO Q8H PRN (Reason: nausea and vomiting) Qty: 10 0RF Follow-up/Referrals: PHYSICIAN,BRIDGE REPAIR CREW PERSON [Primary Care Provider, Internal Medicine]
[2025-05-21 15:13] LABS: Hematocrit 46.0 % (42.0-52.0); Hemoglobin 15.8 g/dL (14.0-18.0); Immature Granulocyte Percent A 0.8 % (0-0.5); Lymphocytes Absolute Auto 1.43 K/mm3 (0.9-3.2); Mean Corpuscular HGB Conc 34.3 g/dl (32-36); Mean Corpuscular Hemoglobin 29.8 pg (26-34); Mean Corpuscular Volume 86.6 fl (80-100); Nucleated Red Blood Cells Absolute Auto 0.000 K/mm3 (0.0-0.012); Nucleated Red Blood Cells Perc 0.0 % (0.0-0.2); Platelet Count Result 172 k/mm3 (150-375); Red Blood Count 5.31 M/mm3 (4.6-6.20); White Blood Count 7.1 K/mm3 (4.5-10.0)
--- OUTSIDE RECORDS SUMMARY | 2025-05-21 15:13 | XMS_ITS | Clinical Summary ---
Author Organization [facility] Address [address] [place] [address] Care Team Providers Care Chemical Equipment Controller Name Role Phone Unavailable Primary Care Provider Unavailabl e Source Comments [facility],non-owned Affiliates and Associated Physician Practices is amultiple site organization consisting of ambulatory clinics and hospital sitesin [place], [place], [place] and [place]. This disclosure is being madepursuant to the Care Everywhere program and may not contain all information available regarding this patient. Last updated 18.[facility] Allergies No known active allergies Medications * [...] on file Legal Sex Male 7:52 AM SEAFOOD PROCESSOR Gender Identity Not on file Sexual Orientation Not on file Last Filed Vital Signs Vital Sign Reading Time Taken Comments Blood Pressure 127/76 09/08/2020 2:48 PM SEAFOOD PROCESSOR Pulse 62 09/08/2020 2:48 PM SEAFOOD PROCESSOR Temperature 36.5 C (97.7 F) 09/08/2020 2:48 PM SEAFOOD PROCESSOR Respiratory Rate - - Oxygen Saturation - - Inhaled Oxygen Concentration - - Weight 90.4 kg (199 lb 6.4 oz) 09/08/2020 2:48 P M SEAFOOD PROCESSOR Height 174 cm (5' 8.5) 09/08/2020 2:48 PM SEAFOOD PROCESSOR Body Mass Index 29.88 09/08/2020 2:48 PM SEAFOOD PROCESSOR Plan of Treatment Health Maintenance Due Date Last Done Comments HIV SCREENING 2018 MENINGOCOCCAL (Group B) VACC INE SHARED DECISION-MAKING (1 of 2 - Standard) 2019 HEPATITIS C SCREENING 02/01/2021 DEPRESSION SCREENING 07/11/2024 COVID-19 VACCINE (2023-2 5 season) 2025 INFLUENZA VACCINE (#1) 2025 , 07/24/2018, 05/31/2017, Additional history exists DTAP/TDAP/TD VACCINES [...] car Lifestyle On track( 021 2:48 PM SEAFOOD PROCESSOR) No Iman Montanez RN [place] [address] [place] [address]
--- OUTSIDE RECORDS SUMMARY | 2025-05-21 15:13 | XMS_ITS | Clinical Summary ---
Author Organization [facility] Address [address] [place] [id number] Care Team Providers Care Broadcast Transmitter Operator Name Role Phone None, Provider MD Primary [...] Insurance [employer] Care Teams Broadcast Transmitter Operator Relationship Specialty Start Date End Date None, Provider, MD PCP - General UNKNOWN PHYSICIAN SPECIALTY 11/06/24
[2025-05-21 15:24] LABS: Alanine Aminotransferase 28 U/L (6-50); Albumin Level 4.5 g/dL (3.5-5.1); Alkaline Phosphatase 107 U/L (38-126); Anion Gap 8 mmol/L (4-12); Aspartate Amino Transferase 30 U/L (17-59); Bilirubin,Total 0.7 mg/dL (0.2-1.3); Blood Urea Nitrogen 14 mg/dL (9-20); Calcium 8.9 mg/dL (8.4-10.2); Carbon Dioxide 28 mmol/L (22-30); Chloride 103 mmol/L (98-107); Estimated CRCL calculation 120 ml/min; Estimated Glomerular Filt Rate > 60; Glucose 93 mg/dL (65-110); Lipase 55 U/L (23-300); Potassium 3.6 mmol/L (3.4-5.0); Sodium 139 mmol/L (137-145); Total Protein 7.6 g/dL (6.3-8.2)
[2025-05-21] MEDS: HYDROmorphone HCL INJ (*CRX) 1 MG/ML SYR 0.5 MG IV PUSH (15:26)
[2025-05-21] MEDS: LACTATED RINGERS 1,000 ML 999 ML IV CONT ×2 (15:27→16:05)
[2025-05-21 15:30] VITALS: BP 124/91; PULSE 79; RESP 16; O2SAT 100
[2025-05-21 15:32] LABS: Add Urine Microscopic? NO; Appearance Urine Clear (Clear); Glucose Urine UA Negative (Negative); Leukocyte Esterase Ur Negative LEU/UL (Negative); Nitrate Urine Negative (Negative); Specific Grav Ur 1.035 (1.001-1.035)
[2025-05-21 17:15] VITALS: BP 121/77; PULSE 77; RESP 18; O2SAT 99
== END 2025-05-21 17:17 | disposition home or self-care (01) ==
PROVIDERS: Emergency Provider Emergency Medicine
DX: I88.0 Nonspecific mesenteric lymphadenitis (principal); F17.290 Nicotine dependence, other tobacco product, uncomplicated
CPT/HCPCS: 36415; 74177; 80053; 81003; 83690; 85025; 96361; 96374; 99284; J1171; J7120; Q9967